=== PATIENT | female | born 1955 | race Caucasian/White ===

== ENCOUNTER 2020-02-21 19:38 | Emergency (ER) | payer MEDICARE, MEDICAID, SELFPAY ==
[2020-02-21 19:41] VITALS: BP 204/106; PULSE 86; RESP 18; TEMP 37.2; O2SAT 98; BMI 42.8
--- NOTE | 2020-02-21 19:46 | CT_ITS ---
STUDY: CT BRAIN WITHOUT CONTRAST REASON FOR EXAM: Female, 64 years old. Decreased level consciousness. Renal failure patient. RADIATION DOSAGE (If Supplied By Facility): CTDIvol = ( 44.99 ) mGy, DLP = ( 846.73 ) mGycm TECHNIQUE: Transaxial CT imaging of the brain was performed without administration of intravenous contrast material. Individualized dose optimization techniques were used for this CT. COMPARISON: No relevant priors. FINDINGS: Normal soft tissue structures. Normal calvarium. Normal size ventricles and extra-axial spaces for the patient''s age. Normal white matter tracts of the cerebral hemispheres. There are bilateral lacunar infarcts of the basal ganglia and thalami. Normal brainstem. Normal cerebellum. There is no intracranial hemorrhage. There are no findings of an acute ischemic infarction. Normal visualized paranasal sinuses. CT/Brain/Head without Contrast IMPRESSION: No definite acute abnormality. Bilateral small lacunar infarcts of the basal ganglia. Electronically Signed: Kamran De León MD at 20:44 EDT , Service support ,
--- NOTE | 2020-02-21 19:47 | EKG12_ITS ---
Test Reason : MENTAL STATUS Blood Pressure : / mmHG Vent. Rate : 084 BPM Atrial Rate : 084 BPM P-R Int : 184 ms QRS Dur : 090 ms QT Int : 400 ms P-R-T Axes : 052 000 047 degrees QTc Int : 472 ms Normal sinus rhythm Normal ECG Confirmed by TOD MASTERS, RIAZ ([id number]), communications editor JOSUÉ WELLS ([id number]) on 02/24/2020 10:40:10 AM Referred By: CHERRIE Confirmed By:RIAZ BARON MD
[2020-02-21 19:58] VITALS: BP 175/68; PULSE 85; RESP 19; O2SAT 99
[2020-02-21 19:58] LABS: Absolute Lymphocyte Count 1.48 X10^3/uL (0.83-4.51); Absolute Neutrophil Count 9.3 X10^3/uL (2.0-7.7); Basophil# 0.01 X10^3/uL; Basophil% 0.1 % (0-1); Eosinophil# 0.05 X10^3/uL; Eosinophils% 0.4 % (0-5); Hematocrit 34.1 % (37-47); Hemoglobin 11.2 g/dL (12.0-15.0); Lymphocyte # 1.48 X10^3/ul (4.0); Lymphocyte % 12.7 % (19-41); Mean Corp Hgb Conc 32.8 g/dL (32-36); Mean Corpuscular Hgb 31.4 pg (27.0-32.0); Mean Corpuscular Volume 95.5 fL (81-99); Mean Platelet Vol. 10.6 fl (6.2-12.0); Monocyte# 0.69 X10^3/uL; Monocyte% 5.9 % (0-10); NRBC Flagged by Analyzer 0 % (0-5); Neutrophil # 9.33 X10^3/uL (2.7-7.7); Neutrophil % 80.3 % (47-70); Platelet Count 211 K/mm3 (150-450); RBC Distribution Width CV 12.7 % (11.6-14.6); RBC Distribution Width SD 43.8 fl (35.1-43.9); Red Blood Count 3.57 M/mm3 (4.2-5.4); White Blood Count 11.6 K/mm3 (4.4-11.0)
[2020-02-21 20:10] LABS: Mucous, Urine 0 SEEN /hpf (<or=2+)
[2020-02-21 20:12] LABS: ALB/GLOB Ratio 0.7 RATIO (0.9-2.4); AST(SGOT) 26 U/L (15-37); Alanine Aminotransfer ALT/SGPT 16 U/L (13-56); Albumin, Serum 3.4 g/dL (3.2-5.0); Alkaline Phosphatase 92 U/L (45-117); Anion Gap 9 (5-15); BUN 58 mg/dL (7-18); Calcium,Total 9.5 mg/dL (8.5-10.1); Chloride 104 mmol/L (98-107); Creatinine, Serum 5.27 mg/dL (0.55-1.02); EST Glomerular Filtration Rate 9 mL/min (>60); Est Glom Filt Rate - Afr Amer 11 mL/min (>60); Estimated Creatinine Clearance 9.83 ml/min; Globulin 4.6 g/dL (2.2-4.2); Glucose 106 mg/dL (74-106); Partial Thromboplast Time 32.8 Seconds (24.1-36.2); Potassium 4.8 mmol/L (3.5-5.1); Prothrombin Time (Protime)PT. 13.1 SECONDS (11.7-14.9); Sodium Level 139 mmol/L (136-145)
[2020-02-21 20:20] LABS: Color, Urine Yellow (Yellow); Glucose, Dipstick Normal (Normal); Ketone-Dipstick Negative (Negative); Leukocyte Esterase-Dipstick 500 /ul (Negative); Nitrite-Dipstick Negative (Negative); Occult Blood-Urine 25 /ul (Negative); Protein-Dipstick 100 mg/dl (Negative); Specific Gravity, Urine 1.005 (1.002-1.030); Urine Bilirubin Dipstick Negative (Negative); Urine Clarity Clear (Clear); Urine Urobilinogen Normal (Normal)
[2020-02-21 20:21] LABS: Alcohol, Blood (Medical)-Serum < 3.0 mg/dL
--- NOTE | 2020-02-21 20:28 | RAD_ITS ---
STUDY: X-RAY CHEST REASON FOR EXAM: Female, 64 years old. DECREASED LOC TECHNIQUE: Single AP portable view of the chest. COMPARISON: None. FINDINGS: There is prominence of the interstitial and bronchovascular markings. This could represent combination of mild fibrosis and minimal congestion/edema. There are no infiltrates or effusions. Mild cardiomegaly. Normal mediastinum and yuan. Normal visualized pulmonary arteries. There is atherosclerotic calcification of the aortic arch with tortuosity. Normal visualized thoracic spine. Normal visualized ribs, clavicles, and shoulders. There is no demonstrated abnormality of the visualized soft tissue structures of the upper abdomen. Multiple surgical clips in the lower left neck. RAD/Chest 1 View (Portable) IMPRESSION: Prominence of the interstitial and bronchovascular markings. This could represent combination of mild fibrosis and minimal congestion/edema. Electronically Signed: Kamran De León MD at 20:56 EDT , Service support ,
[2020-02-21 20:29] LABS: Red Blood Cells-Urine 0-5 SEEN /hpf (0-5); Squamous Epithelial Cells - UA 5-10 SEEN /hpf (5-10); White Blood Cells 5-10 SEEN /hpf (0-5)
[2020-02-21 20:30] LABS: Bacteria 1+ /hpf (None Seen); Renal Epithelial Cells 0-5 SEEN /hpf (0-5)
[2020-02-21 20:37] LABS: Amphetamine Urine VISTA NEGATIVE (<1000 ng/mL); Barbiturate Urine VISTA NEGATIVE (< 200 ng/mL); Benzodiazepine Urine VISTA POSITIVE (< 200 ng/mL); Cocaine Urine VISTA NEGATIVE (< 300 ng/mL); Ecstacy Urine VISTA NEGATIVE (< 500 ng/mL); Methadone Urine VISTA NEGATIVE (< 300 ng/mL); PCP Urine VISTA NEGATIVE (< 25 ng/mL); THC Urine VISTA NEGATIVE (< 50 ng/mL); Vista UDS pH Range 7
[2020-02-21 20:38] VITALS: BP 166/100; PULSE 87; RESP 19; TEMP 36.2; O2SAT 99
[2020-02-21 20:39] VITALS: TEMP 36.2
[2020-02-21 20:43] LABS: Lactic Acid 1.1 mmol/L (0.4-1.9)
[2020-02-21 21:00] VITALS: BP 138/105; PULSE 97; RESP 21; O2SAT 93
--- NOTE | 2020-02-21 22:30 | PCM.HP.STD ---
History of Present Illness The patient is a 64 year old F [] Past Medical History Allergies Penicillins [PCN] Allergy (Verified 02/21/20 19:53) PT UNABLE TO RESPOND-NEEDS F/U Smoking Status: Current every day smoker - Physical Exam Vitals/I&O's: Vital Signs Temp Pulse Resp BP Pulse Ox 97.2 F L 97 21 H 138/105 H 93 02/21/20 20:39 02/21/20 21:00 02/21/20 21:00 02/21/20 21:00 02/21/20 21:00 Oxygen Delivery Method Room Air Weight: 116.9 kg Body Mass Index (BMI) 42.8 Laboratory Results 02/21/20 19:47: WBC 11.6 H, RBC 3.57 L, Hgb 11.2 L, Hct 34.1 L, MCV 95.5, MCH 31.4, MCHC 32.8, RDW Std Deviation 43.8, RDW Coeff of Sim 12.7, Plt Count 211, MPV 10.6, Immature Gran % (Auto) 0.600, Neut % (Auto) 80.3 H, Lymph % (Auto) 12.7 L, [place] % (Auto) 5.9, Eos % (Auto) 0.4, Baso % (Auto) 0.1, Absolute Neuts (auto) 9.3 H, Absolute Lymphs (auto) 1.48, Nucleated RBC % 0 02/21/20 19:47: Sodium 139, Potassium 4.8, Chloride 104, Carbon Dioxide 26.0, Anion Gap 9, BUN 58 H, Creatinine 5.27 H, Estim Creat Clear Calc 9.83, Est GFR (MDRD) Af Amer 11 L, Est GFR (MDRD) Non-Af 9 L, BUN/Creatinine Ratio 11.0, Glucose 106, Calcium 9.5, Total Bilirubin 0.50, AST 26, ALT 16, Alkaline Phosphatase 92, Total Protein 8.0, Albumin 3.4, Globulin 4.6 H, Albumin/Globulin Ratio 0.7 L 02/21/20 19:47: Ethyl Alcohol < 3.0 02/21/20 19:47: PT 13.1, INR 1.0, APTT 32.8 02/21/20 20:05: Urine Color Yellow, Urine Clarity Clear, Urine pH 7.0, Ur Specific [place] 1.005, Urine Protein 100 H, Urine Glucose (UA) Normal, Urine Ketones Negative, Urine Occult Blood 25 H, Urine Nitrite Negative, Urine Bilirubin Negative, Urine Urobilinogen Normal, Ur Leukocyte Esterase 500 H, Urine RBC 0-5 SEEN, Urine WBC 5-10 SEEN, Ur Squamous Epith Cells 5-10 SEEN, Ur Renal Epithelial Cell 0-5 SEEN, Urine Bacteria 1+, Urine Mucus 0 SEEN 02/21/20 20:05: Urine Opiates Screen POSITIVE H, Urine Methadone Screen NEGATIVE, Ur Barbiturates Screen NEGATIVE, Ur Phencyclidine Scrn NEGATIVE, Ur Amphetamines Screen NEGATIVE, U Methamphetamin-MDMA NEGATIVE, U Benzodiazepines Scrn POSITIVE H, Urine Cocaine Screen NEGATIVE, U Cannabinoids Screen NEGATIVE, Ur Drug Screen Comment 02/21/20 20:07: Lactic Acid 1.1
[2020-02-21 23:03] VITALS: BP 169/72; PULSE 91; RESP 18; O2SAT 98
[2020-02-21] MEDS: Ceftriaxone 1 GM/50 ML BAG IV (23:55)
[2020-02-21] MEDS: Ziprasidone IM 20 MG/ML VIAL IM (23:55)
--- NOTE | 2020-02-22 00:21 | ED.DCSUM_ITS ---
- ER Visit Summary Date of Service: 02/22/20 Chief Complaint: Decreased level of consciousness History of Present Illness: The patient is a [address] Sosa in infectious disease specialist, Dr. Henry at [facility]. She has a complicated recent medical history. Her reports that she was on IV antibiotics for what sounds to be osteomyelitis of her spine for 2 months. He states that he she finished this 1 month ago. 3 days ago she had a bone biopsy of her T10 vertebrae at [facility] for infection. She has end-stage renal disease and gets dialysis Sunday and only. reports that after getting the bone biopsy on Sunday they went camping and she skipped her dialysis on . She was doing fine and Sunday. States that at this morning around 11 she got up and fell. She then went back to bed. He states that throughout the remainder of the day he has been unable to arouse her. He reports that she is never had anything like this before. Physical Examination: Vitals: Stable. Afebrile. General: Well-nourished and well-developed. Head: Normocephalic atraumatic. Neck: Supple, no lymphadenopathy. No JVD. Nontender. Cardiovascular: Regular rate and rhythm. No murmurs. Respiratory: No respiratory distress. Clear to auscultation bilaterally. Abdominal: Soft, nontender, nondistended, normal bowel sounds. No guarding, rebound, or peritoneal signs. Back: Moderate tenderness palpation over her lower back. Extremities: Nontender, no edema. Skin: Normal color, no rash. Neurologic: Patient is lethargic, but she arouses to voice. She moves all extremities well. She does not follow commands. Psych: Agitated. Test Results: EKG is sinus at [address] changes. CBC shows a white count of 11.6 with an H&H 11.2 and 34.1, 7 neutrophils 80, lymphocytes of 13. Chem-7 shows a BUN of 58 and creatinine 5.27. LFTs show globulin 4.6. Coags are normal. UA shows 5-10 white blood cells and 1+ bacteria. However, there are also 5-10 epithelial cells. Alcohol is negative. Talk screen shows opiates and benzodiazepines. Lactic acid is 1.1. Clinical Impression(s) from Imaging Studies Brain CT 02/21/20 19:46 IMPRESSION: No definite acute abnormality. Bilateral small lacunar infarcts of the basal ganglia. Electronically Signed: Kamran De León MD at 20:44 EDT , Service support , Chest X-Ray 02/21/20 20:28 IMPRESSION: Prominence of the interstitial and bronchovascular markings. This could represent combination of mild fibrosis and minimal congestion/edema. Electronically Signed: Kamran De León MD at 20:56 EDT , Service support , Emergency Department Course and Treatment: Patient was given a dose of Rocephin IV. She was given Geodon IM. I did attempt to review things from [facility] is seeing, but there is not any information available from [facility]. I did see that the bone biopsy that she had on February 17 Gram stain showed no organism and the culture is negative to this point. Patient's behavior did remain abnormal emergency department. She was calling out repeatedly. I had a prolonged discussion the at this point I do not have an explanation for her symptoms. Treatment Plan: Patient was discussed with Dr. Torres who asked that for continuity care and potential neurology evaluation should be transferred to a tertiary care center. I discussed this with her who asked for [facility]. They refused the patient. She was then discussed with Dr. Burrell at [facility] was accepted her in transfer. Disposition: Transferred in serious condition. Impression: 1. Mental status change, uncertain cause. 2. 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 3. History of endocarditis. 4. End-stage renal disease with noncompliance. This note was generated with [employer] dictation software. It may contain incorrect words, spelling, and punctuation that were not noted in review of the chart prio r to signing ED Disposition - Plan for ED Patient: Referrals: Care Physician,No Primary [Primary Care Provider] -
[2020-02-22 00:24] VITALS: BP 181/80; PULSE 100; RESP 21; O2SAT 92
[2020-02-22 03:57] VITALS: BP 131/74; BP 181/80; PULSE 100; PULSE 81; RESP 15; RESP 18; O2SAT 92; O2SAT 96
--- NOTE | 2020-02-23 00:13 | ED.RN ---
Called [facility], spoke with Pratik NOLASCO for preliminary gram positive cocci.
--- NOTE | 2020-02-26 09:07 | ED.RN ---
BLOOD CULTURE RESULTS FAXED TO [facility]. FAX # [phone]
== END 2020-02-22 03:40 | disposition short-term general hospital (02) ==
PROVIDERS: Emergency Provider Emergency Medicine
DX: R41.82 Altered mental status, unspecified (principal); M46.24 Osteomyelitis of vertebra, thoracic region; I38 Endocarditis, valve unspecified; N18.6 End stage renal disease; Z99.2 Dependence on renal dialysis; Z91.15 Patient's noncompliance with renal dialysis; Z86.73 Personal history of transient ischemic attack (TIA), and cerebral infarction without residual deficits; F17.200 Nicotine dependence, unspecified, uncomplicated
CPT/HCPCS: 70450; 71045; 80053; 80307; 80320; 81001; 83605; 85025; 85610; 85730; 87040; 87077; 87086; 87088; 87149; 87186; 87635; 93005; 96361; 96365; 96366; 96372; 99285; G2023; J7030; A4216; G0480; J3486; U0003

== ENCOUNTER 2021-04-01 22:43 | Emergency (ER) | payer MEDICARE, MEDICAID, SELFPAY ==
[2021-04-01 22:44] VITALS: BP 137/86; PULSE 89; RESP 19; TEMP 36.3; O2SAT 97; BMI 36.2
--- NOTE | 2021-04-01 23:25 | RAD_ITS ---
STUDY: X-RAY CHEST REASON FOR EXAM: Female, 65 years old. Dyspnea TECHNIQUE: AP COMPARISON: 02/21/2020 FINDINGS: The lungs demonstrate no focal lung consolidative change. There is no demonstrated pleural abnormality. Normal size heart. Normal mediastinum and yuan. Normal visualized pulmonary arteries. There is atherosclerotic calcification of the aortic arch with tortuosity. Normal visualized thoracic spine. Normal visualized ribs, clavicles, and shoulders. There are surgical clips in the left neck. There is no demonstrated abnormality of the visualized soft tissue structures of the upper abdomen. RAD/Chest 1 View (Portable) IMPRESSION: No focal consolidative lung change. No interval change. Electronically Signed: Kris Espitia MD at 0:05 EDT Tel , Service support ,
--- NOTE | 2021-04-01 23:27 | EDS_ITS ---
HPI History of Present Illness Chief Complaint: Substance Abuse Detail of Chief Complaint: Hypoglycemia, CBD gummy ingestion Informant: patient and spouse/S.O. Onset/Context/Timing Onset: Today Context: Gradual Onset Timing: Continuous Quality: Shaking Location: Generalized Worsened by: Nothing Relieved by: Nothing Associated Symptoms Associated Symptoms: Shaking, tremors Narrative Narrative: Patient presents with a hypoglycemic episode that occurred earlier today. Patient checked her blood sugar at home and noticed it was low. Patient was given peanut butter sandwich and orange juice. Patient states she was still feeling shaking and tremors. Patient then took 2-1/2 CBD Gummies. Patient currently admits to some blurry vision and some shortness of breath. Patient denies any fevers or chills. Patient denies any chest pain or palpitations. Patient also states she thought she was having a seizure earlier today and took an extra dose of her Keppra. [facility] Medical History Afib Chronic renal disease, stage 5, glomerular filtration rate (GFR) less than or equal to 15 mL/min/1.73 square meter Diabetes Hyperlipemia Hypertension Seizure Allergy/AdvReac Type Severity Reaction Status Date / Time Penicillins [PCN] Allergy PT UNABLE Verified 02/21/20 19:53 TO RESPOND-NEEDS F/U adhesive tape AdvReac Rash Verified 04/01/21 22:48 bee venom protein (honey bee) AdvReac Swelling Verified 04/01/21 22:48 Social History Smoking Status: Former smoker ROS ROS ED Constitutional Constitutional ED: Denies chills or fever(s) Eyes Eyes: Reports blurry vision; Denies change in vision ENT ENT ED: Denies rhinorrhea or sore throat Cardiovascular Cardiovascular: Denies chest pain or palpitations Respiratory/Chest Respiratory/Chest: Reports dyspnea; Denies cough Gastrointestinal Gastrointestinal: Denies nausea or vomiting Genitourinary Genitourinary ED: Denies dysuria or hematuria Musculoskeletal Musculoskeletal: Reports neck pain; Denies back pain Integumentary Denies abscess or rash Neurologic Neurologic: Denies headache(s) or weakness Allergic/Immunologic Allergic/Immunologic ED: Denies mouth swelling or urticaria EXAM Physical Exam Const Vital Signs: 04/01/21 22:44 04/01/21 23:38 04/01/21 23:44 Temperature 97.4 F L Temperature Source Temporal Pulse Rate 89 87 Respiratory Rate 19 H 16 Respiratory Effort Normal Short of Breath Respiratory Pattern Normal Blood Pressure 137/86 H Blood Pressure Mean 103 Pulse Ox 97 Oxygen Delivery Method Room Air 04/02/21 01:48 Temperature Temperature Source Pulse Rate 92 Respiratory Rate 12 Respiratory Effort Respiratory Pattern Blood Pressure 124/52 H Blood Pressure Mean 76 Pulse Ox 93 Oxygen Delivery Method Room Air Positive well nourished, well developed and obese General Appearance ED: well developed Nutritional Appearance: obese HEENT Reports moist mucous membranes Neck supple and no JVD Resp normal respiratory effort Auscultation: wheezes expiratory wheezes (Mild) and throughout Cardio regular rate, regular rhythm and no murmurs GI normal to inspection, nondistended, normoactive bowel sounds and non-tender Palpation: soft Extremity normal to inspection General Extremety ED: Negative for edema or tenderness General Extremity: Negative for edema Neuro oriented x3, CN's II-XII intact bilaterally and no sensory deficits noted Sensorium / Orientation: alert Motor Exam: strength 5/5 throughout Psych mental status grossly normal Skin no rashes or lesions noted MDM MDM MDM Narrative Medical decision making narrative: Patient was given a DuoNeb here. CBC shows a mild anemia with a hemoglobin of 11.6 and hematocrit of 34.1. Comprehensive metabolic profile showed a mild hyponatremia of 129 and chloride of 91. BUN was 33 and creatinine was 4.25. These are consistent with prior results. Glucose was 254. Urinalysis shows leukocyte esterase of 500 with 5-10 white blood cells but 10-25 epithelial cells and 25-50 hyaline cast. There is no evidence of urinary tract infection. Urine culture was sent. Portable 1 view chest x-ray was obtained. On my interpretation, lung resendiz are clear. There is normal cardiac silhouette. Bony thorax is normal. There is no acute process noted. Radiologist also interpreted the x-ray and agrees. Patient is feeling better on reevaluation. Patient was instructed to drink plenty of fluids. Patient was instructed to follow-up with her primary care physician in 5 to 7 days. Patient understood and was agreeable with the plan. All questions were answered. Lab Data Attestation: I reviewed the patient's lab results. Labs: Laboratory Results - last 24 hr 04/01/21 04/01/21 04/02/21 23:40 23:40 02:20 WBC 8.5 RBC 3.64 L Hgb 11.6 L Hct 34.1 L MCV 93.7 MCH 31.9 MCHC 34.0 RDW Std Deviation 42.5 RDW Coeff of Sim 12.6 Plt Count 198 MPV 10.5 Immature Gran % (Auto) 1.200 H Neut % (Auto) 76.1 H Lymph % (Auto) 14.1 L [place] % (Auto) 7.3 Eos % (Auto) 0.9 Baso % (Auto) 0.4 Absolute Neuts (auto) 6.5 Absolute Lymphs (auto) 1.20 Nucleated RBC % 0 Sodium 129 L Potassium 3.7 Chloride 91 L Carbon Dioxide 32.0 Anion Gap 6 BUN 33 H Creatinine 4.25 H Estim Creat Clear Calc 13.00 Est GFR (MDRD) Af Amer 14 L Est GFR (MDRD) Non-Af 11 L BUN/Creatinine Ratio 7.8 L Glucose 254 H Calcium 9.3 Total Bilirubin 0.50 AST 14 L ALT 20 Alkaline Phosphatase 104 Total Protein 7.8 Albumin 3.8 Globulin 4.0 Albumin/Globulin Ratio 1.0 Urine Color Yellow Urine Clarity Clear Urine pH 5.0 Ur Specific [place] 1.020 Urine Protein 100 H Urine Glucose (UA) Normal Urine Ketones 5 H Urine Occult Blood 10 H Urine Nitrite Negative Urine Bilirubin 3 H Urine Urobilinogen 1 H Ur Leukocyte Esterase 500 H Urine RBC 0-5 SEEN Urine WBC 5-10 SEEN Ur Squamous Epith Cells 10-25 SEEN Urine Bacteria 1+ Hyaline Casts 25-50 SEEN Urine Mucus 0 SEEN Radiography Chest X-Ray - ED: 1 View, Read by ED Physician, Read by Radiologist and Normal Diagnostic Testing: Radiology Impression Chest X-Ray 04/01/21 23:25 IMPRESSION: No focal consolidative lung change. No interval change. Electronically Signed: Kris Espitia MD at 0:05 EDT Tel , Service support , Discharge Plan Triage Chief Complaint: Substance Abuse ED Provider: Gautam Herrera Dx/Rx/DC Orders Clinical Impression: Hypoglycemia Instructions: ED Hypoglycemia Oral Diabetic ... Primary Care Provider: Care Physician,No Primary Referrals: Care Physician,No Primary [Primary Care Provider] - 5-7 Days Disposition Disposition: Home, Self Care
[2021-04-01 23:38] VITALS: PULSE 87; RESP 16
[2021-04-01] MEDS: Albuterol 2.5 MG/3 ML VIAL.NEB. INHALATION (23:38)
[2021-04-01 23:51] LABS: Absolute Neutrophil Count 6.5 X10^3/uL (2.0-7.7); Basophil# 0.03 X10^3/uL; Basophil% 0.4 % (0-1); Eosinophil# 0.08 X10^3/uL; Eosinophils% 0.9 % (0-5); Hematocrit 34.1 % (37-47); Hemoglobin 11.6 g/dL (12.0-15.0); Lymphocyte % 14.1 % (19-41); Mean Corpuscular Hgb 31.9 pg (27.0-32.0); Mean Corpuscular Volume 93.7 fL (81-99); Mean Platelet Vol. 10.5 fl (6.2-12.0); Monocyte# 0.62 X10^3/uL; Monocyte% 7.3 % (0-10); NRBC Flagged by Analyzer 0 % (0-5); Neutrophil # 6.48 X10^3/uL (2.7-7.7); Neutrophil % 76.1 % (47-70); Platelet Count 198 K/mm3 (150-450); RBC Distribution Width CV 12.6 % (11.6-14.6); RBC Distribution Width SD 42.5 fl (35.1-43.9); Red Blood Count 3.64 M/mm3 (4.2-5.4); White Blood Count 8.5 K/mm3 (4.4-11.0)
[2021-04-02 00:08] LABS: AST(SGOT) 14 U/L (15-37); Alanine Aminotransfer ALT/SGPT 20 U/L (13-56); Albumin, Serum 3.8 g/dL (3.2-5.0); Alkaline Phosphatase 104 U/L (45-117); Anion Gap 6 (5-15); BUN 33 mg/dL (7-18); BUN/Creat Ratio 7.8 RATIO (10-20); Calcium,Total 9.3 mg/dL (8.5-10.1); Chloride 91 mmol/L (98-107); Creatinine, Serum 4.25 mg/dL (0.55-1.02); EST Glomerular Filtration Rate 11 mL/min (>60); Est Glom Filt Rate - Afr Amer 14 mL/min (>60); Glucose 254 mg/dL (74-106); Potassium 3.7 mmol/L (3.5-5.1); Protein, Total 7.8 g/dL (6.4-8.2); Sodium Level 129 mmol/L (136-145)
[2021-04-02 01:48] VITALS: BP 124/52; PULSE 92; RESP 12; O2SAT 93
[2021-04-02 02:29] LABS: Mucous, Urine 0 SEEN /hpf (<or=2+)
[2021-04-02 02:31] LABS: Color, Urine Yellow (Yellow); Glucose, Dipstick Normal (Normal); Ketone-Dipstick 5 mg/dl (Negative); Leukocyte Esterase-Dipstick 500 /ul (Negative); Nitrite-Dipstick Negative (Negative); Occult Blood-Urine 10 /ul (Negative); Protein-Dipstick 100 mg/dl (Negative); Urine Clarity Clear (Clear); Urine Urobilinogen 1 mg/dl (Normal)
[2021-04-02 02:35] LABS: Urine Bilirubin Dipstick 3 mg/dL (Negative)
[2021-04-02 02:42] LABS: Hyaline Cast 25-50 SEEN /lpf (0-5); Red Blood Cells-Urine 0-5 SEEN /hpf (0-5)
[2021-04-02 02:43] LABS: Bacteria 1+ /hpf (None Seen); Squamous Epithelial Cells - UA 10-25 SEEN /hpf (5-10); White Blood Cells 5-10 SEEN /hpf (0-5)
[2021-04-02 04:00] VITALS: PULSE 92; RESP 15; O2SAT 93
== END 2021-04-02 04:29 | disposition home or self-care (01) ==
PROVIDERS: Emergency Provider Emergency Medicine
DX: E11.649 Type 2 diabetes mellitus with hypoglycemia without coma (principal); E87.1 Hypo-osmolality and hyponatremia; D64.9 Anemia, unspecified; E66.9 Obesity, unspecified; Z68.36 Body mass index [BMI] 36.0-36.9, adult; I12.0 Hypertensive chronic kidney disease with stage 5 chronic kidney disease or end stage renal disease; E11.22 Type 2 diabetes mellitus with diabetic chronic kidney disease; N18.5 Chronic kidney disease, stage 5; E78.5 Hyperlipidemia, unspecified; I48.91 Unspecified atrial fibrillation; G40.909 Epilepsy, unspecified, not intractable, without status epilepticus; Z79.899 Other long term (current) drug therapy; Z87.891 Personal history of nicotine dependence
CPT/HCPCS: 71045; 80053; 81001; 85025; 87086; 87088; 87186; 94640; 99284; J7030; A4216